=== PATIENT | female | born 1995 | race Caucasian/White ===

== ENCOUNTER 2016-02-24 20:43 | Emergency (ER) | payer BC ==
[~2016-02-24] VITALS: Ht 172.7 cm; Wt 80.7 kg
[2016-02-24] MEDS ORDERED: Ketorolac 60mg Inj IM ONE (21:45)
[2016-02-24 22:04] LABS: APPEARANCE,URINE CLEAR; KETONES,URINE NEGATIVE (NEGATIVE); LEUKOCYTE ESTERASE ,URINE 3+ (NEGATIVE); NITRITE,URINE NEGATIVE (NEGATIVE); PH,URINE 8 (4.5-8.0); PROTEIN,URINE NEGATIVE (NEGATIVE); UROBILINOGEN,URINE NORMAL MG/DL (0.0-1.0)
--- NOTE | 2016-02-24 22:05 | Emergency Room Report ---
History of Present Illness General Chief Complaint: Lower Back Pain or Injury Source: Patient Present Illness [facility] This is a 20-year-old female with no significant past medical history. She present with lower back pain. Pain is been ongoing for the last 6 months. She said is localized the lower back and spread up. No trauma. Pain is severe, 10 out of 10. No radiation down her leg. No incontinence of bowel or urine. No trauma. No fever or chills. No urinary complaint. Worse with palpation. Allergies: Coded Allergies: No Known Allergies (Unverified , 02/24/16) Patient History Past Medical History: see triage record, old chart reviewed, psych hx Past Surgical History: other Pertinent Family History: none Social History: Denies: drug use Last Menstrual Period: control - Mirena Now: No : 0 Para: 0 Immunizations: other Reviewed Nursing Documentation: PMH: Agreed, PSxH: Agreed Review of Systems Eye: Denies: blurred vision, eye pain ENT: Denies: ear pain, nose congestion, throat swelling Respiratory: Denies: cough, shortness of breath Cardiovascular: Denies: chest pain, palpitations Gastrointestinal: Denies: abdominal pain, diarrhea, nausea, vomiting Musculoskeletal: Reports: back pain, Denies: joint pain Skin: Denies: rash Neurological: Denies: headache, numbness Endocrine: Denies: increased thirst, increased urine Hematologic/Lymphatic: Denies: easy bruising All Other Systems: negative except mentioned in HPI Physical Exam Vital Signs Date Time Temp Pulse Resp B/P Pulse Ox O2 Delivery O2 Flow Rate FiO2 02/24/16 21:12 97.9 78 16 105/70 98 Room Air vitals normal Sp02 EP Interpretation: reviewed, normal General Appearance: well appearing, no apparent distress, alert Head: normocephalic, atraumatic Eyes: bilateral eye EOMI, bilateral eye PERRL ENT: hearing grossly normal, normal pharynx Neck: full range of motion, supple, no meningismus, other - Long horizontal scar along the anterior aspect of the neck. Respiratory: chest non-tender, lungs clear, normal breath sounds Cardiovascular #1: regular rate, rhythm, no murmur Gastrointestinal: normal bowel sounds, non tender, no mass, no organomegaly, no bruit, non-distended Musculoskeletal: back normal, gait/station normal, normal range of motion, other - Patient has diffuse back pain when I barely touch her. She however, sat up from a laying position without any difficulty. When I listened with my stethoscope she has no pain. Is no anesthesia. No step-off. No percussive tenderness. Neurologic: alert, oriented x3 Psychiatric: mood/affect normal Skin: warm/dry Medical Decision Making Diagnostic Impression: Primary Impression: Low back pain Qualified Codes: M54.5 - Low back pain Additional Impression: UTI (urinary tract infection) Qualified Codes: N30.00 - Acute cystitis without hematuria ER Course Patient presents with back pain. No red flags indicate this is a cauda equina, spinal after abscess or neoplastic process. I suspect there is strong psychogenic component. She is very histrionic. X-rays unremarkable. Urine unremarkable. We'll discharge home with NSAID. I see no red flags indicate emergent MRI. Her urinalysis is equal local. She may have urinary tract infection. Because of the lower back pain will go ahead and put on antibiotics. Other X-Ray Diagnostic Results Other X-Ray Diagnostic Results : X-Ray Ordered: Lumbar x-rays Date: Feb 24, 2016 Time: 22:05 EP Interpretation: Yes Findings: no fractures, no dislocation, no soft tissue swelling Number of Views: 4 Last Vital Signs Date Time Temp Pulse Resp B/P Pulse Ox O2 Delivery O2 Flow Rate FiO2 02/24/16 21:12 97.9 78 16 105/70 98 Room Air Status: improved Disposition: HOME, SELF-CARE Condition: Stable Scripts Naproxen* (NAPROXEN*) 500 Mg Tablet 500 MG ORAL TWICE A DAY, #30 TAB Prov: EMIL WEAVER M.D. 02/24/16 Nitrofurantoin Monohyd/M-Cryst (Nitrofurantoin Cottle-Mcr 100 mg) 100 Mg Capsule 100 MG ORAL Q12H, #14 CAP Prov: EMIL WEAVER M.D. 02/24/16 Patient Instructions: Back Pain, Adult Additional Instructions: Followup with your DrWilmer in 7 days. If not better, he may need an MRI. Return if symptom worsen. EMIL WEAVER M.D. Feb 24, 2016 22:05
[2016-02-24 22:10] LABS: BACTERIA,URINE FEW /HPF; RBC,URINE 0-2 /HPF (0 - 2); SQUAMOUS EPITHELIAL CELL,UR FEW /LPF (NONE/OCC); WBC,URINE 0-2 /HPF (0 - 2)
[2016-02-24 22:30] VITALS: BP 110/65
[2016-02-24] MEDS ORDERED: NAPROXEN500 M2 ORAL (22:48)
[2016-02-24] MEDS ORDERED: MACROBID100 MG ORAL (22:48)
[2016-02-24 22:59] VITALS: BP 110/65
--- NOTE | 2016-02-25 11:53 | Diagnostic Imaging Report ---
Indication: Back pain Comparison: None Findings: 3 views of the lumbar spine were obtained. No acute fracture or malalignment is identified. Vertebral body heights and disk spaces are well maintained. Posterior elements are unremarkable. Impression: No acute findings.
== END 2016-02-24 22:59 | disposition home or self-care (01) ==
LOC: EMR 21:56
DX: N30.00 Acute cystitis without hematuria (principal); M54.5 Low back pain
CPT/HCPCS: 72020; 80300; 81003; 81025; 96372; 99283

== ENCOUNTER 2016-04-08 19:20 | Emergency (ER) | payer BC ==
[~2016-04-08] VITALS: Ht 172.7 cm; Wt 80.7 kg
[~2016-04-08 19:20] MED LIST: MACROBID100 MG ORAL; NAPROXEN500 M2 ORAL
[2016-04-08 20:48] VITALS: BP 118/73
--- NOTE | 2016-04-08 20:52 | Emergency Room Report ---
History of Present Illness General Chief Complaint: Earache Source: Patient Present Illness HPI 20-year-old female presents to emergency Department complaining of 10 out of 10 in severity left ear pain x2 days. Patient denies nausea, vomiting, fevers, chills, recent ill contacts or recent travel. Patient also reports mild sore throat. Patient is up-to-date with vaccinations.Denies CP, Palpitations, LOC, AMS, dizziness, Changes in Vision, Sensation, paresthesias, or a sudden severe headache. She denies abdominal pain or rashes Denies CP, Palpitations, LOC, AMS , dizziness, Changes in Vision, Sensation, paresthesias, or a sudden severe headache. Allergies: Coded Allergies: No Known Allergies (Unverified , 02/24/16) Patient History Past Medical History: see triage record Past Surgical History: none Pertinent Family History: none Social History: Reports: drug use Now: No Immunizations: UTD Reviewed Nursing Documentation: PMH: Agreed, PSxH: Agreed Review of Systems All Other Systems: negative except mentioned in HPI Physical Exam Vital Signs Date Time Temp Pulse Resp B/P Pulse Ox O2 Delivery O2 Flow Rate FiO2 04/08/16 20:16 97.0 81 16 118/73 99 Room Air Sp02 EP Interpretation: reviewed, normal General Appearance: no apparent distress, alert, GCS 15, non-toxic Head: normocephalic, atraumatic Eyes: bilateral eye PERRL, bilateral eye normal inspection ENT: hearing grossly normal, normal pharynx, no angioedema, normal voice, uvula midline, moist mucus membranes, other - left Ear canal has macerated appearance and white d/c noted. PT has tragal and auricle TTP, the TM is not involved, there is not evidence of mastoiditis, the troat is WNL Neck: full range of motion, no meningismus, no bony tend, supple/symm/no masses Respiratory: chest non-tender, lungs clear, normal breath sounds, speaking full sentences Cardiovascular #1: regular rate, rhythm, no edema Gastrointestinal: non tender, soft, no guarding, no rebound Rectal: deferred Genitourinary: normal inspection, no CVA tenderness Musculoskeletal: back normal, gait/station normal, normal range of motion, non- tender, no calf tenderness Neurologic: alert, oriented x3, responsive, motor strength/tone normal, sensory intact, speech normal Psychiatric: judgement/insight normal, memory normal, mood/affect normal, no suicidal/homicidal ideation Skin: normal color, no rash, warm/dry, well hydrated Lymphatic: no adenopathy Medical Decision Making PA Attestation Dr. Carvalho is my supervising Physician whom patient management has been discussed with. Diagnostic Impression: Primary Impression: Otitis externa of left ear Qualified Codes: H60.8X2 - Other otitis externa, left ear ER Course 20-year-old female presents to emergency Department complaining of 10 out of 10 in severity left ear pain x2 days. Patient denies nausea, vomiting, fevers, chills, recent ill contacts or recent travel. Patient also reports mild sore throat. Patient is up-to-date with vaccinations Ddx considered but are not limited to OM, OE, mastoiditis, TM perforation, FB Vital signs: are WNL, pt. is afebrile H&PE are most consistent with otitis externa ORDERS: none required at this time, the diagnosis is clinical ED INTERVENTIONS: None required at this time. DISCHARGE: At this time pt. is stable for d/c to home. With Otic ABX. Will provide printed patient care instructions, and any necessary prescriptions. Care plan and follow up instructions have been discussed with the patient prior to discharge. Last Vital Signs Date Time Temp Pulse Resp B/P Pulse Ox O2 Delivery O2 Flow Rate FiO2 04/08/16 20:16 97.0 81 16 118/73 99 Room Air Disposition: HOME, SELF-CARE Condition: Stable Scripts Acetaminophen* (TYLENOL EXTRA STRENGTH*) 500 Mg Tablet 500 MG ORAL Q6H, #30 TAB 0 Refills Prov: Roxana Magaña 04/08/16 Ciprofloxacin/Hydrocortisone (CIPRO HC OTIC SUSPENSION) 10 Ml Drops.susp 10 DROP OT BID, #10 ML Prov: Roxana Magaña 04/08/16 Departure Forms: Return to Work Return to Work Date: Apr 10, 2016 Work Restrictions: None Return to Full Activity: Apr 10, 2016 Patient Instructions: Otitis Externa, [id number] Additional Instructions: Take medications as directed. Follow up with PCP in 3-5 days Return sooner to ED if new symptoms occur, or current symptoms become worse. - Please note that this Emergency Department Report was dictated using [employer] technology software, occasionally this can lead to erroneous entry secondary to interpretation by the dictation equipment. Roxana Magaña Apr 08, 2016 20:52
[2016-04-08] MEDS ORDERED: CIPRO HC OTIC S10 M1 OT (20:53)
[2016-04-08] MEDS ORDERED: TYLENOL EXTRA500 MG ORAL (20:53)
[2016-04-08 20:59] VITALS: BP 118/73
== END 2016-04-08 20:59 | disposition home or self-care (01) ==
LOC: EMR 20:48
DX: H60.8X2 Other otitis externa, left ear (principal); F19.10 Other psychoactive substance abuse, uncomplicated
CPT/HCPCS: 99284